=== PATIENT | female | born 1970 | race Caucasian/White ===

== ENCOUNTER → 2016-06-28 | Outpatient (CLI) | payer MEDICAID ==
--- NOTE | ~2016-06-28 | TH ---
Unit #: [id number] #: [id number] Patient: GERARD MEDEIROS [id number] [address] [address] [id number] O MR#: [id number] NAME: GERARD MEDEIROS. : 1970 SEX: F STUDY DATE/TIME: UNIT: [facility] ROOM: STUDY DESCRIPTION: Nuclear Study Attending Physician: Patrick Pierre M.D. Referring Physician: Patrick Pierre M.D. Primary Care Physician: Patrick Pierre M.D. CARDIOLOGY REPORT EXAM Exercise Cardiolite Stress Test - Nuclear Portion PROCEDURE Using technetium 99m labeled Cardiolite, rest and stress SPECT images were obtained. Multiple SPECT images were obtained in various views including horizontal and vertical long axis and short axis views of the left ventricle. Images were obtained by gated SPECT method. The patient was administered 1.71 mCi of Cardiolite at rest. The patient was administered 32.0 mCi of Cardiolite at peak exercise. Total exercise time is 10 minutes. On the stress images, there is normal perfusion noted. The rest images show normal perfusion. Comparing rest and stress images, there is no stress-induced ischemia noted. The left ventricular ejection fraction is calculated to be 61%. There is no focal wall motion abnormality seen. CONCLUSION 1. No stress-induced ischemia noted. 2. The left ventricular ejection fraction is calculated to be 61%. 3. There is no focal wall motion abnormalities seen. 4. Normal exercise Cardiolite stress test. Dictated by... Christophe Marsh TD: 06/29/2016 07:13 JOB #: [id number] Unit #: [id number] #: [id number] Patient: GERARD MEDEIROS CARDIOLOGY REPORT Page 1 of 1 X Keyona Chaudhari MD <ELECTRONICALLY SIGNED> 10/01/16 1429 CARDIOLOGY REPORT
--- NOTE | ~2016-06-28 | ST ---
Unit #: [id number] #: [id number] Patient: GERARD MEDEIROS [id number] [address] [address] [id number] O MR#: [id number] NAME: GERARD MEDEIROS. : 1970 SEX: F STUDY DATE/TIME: 06/28/2016 UNIT: [facility] ROOM: STUDY DESCRIPTION: Exercise stress test Attending Physician: Patrick Pierre M.D. Referring Physician: Patrick Pierre M.D. Primary Care Physician: Patrick Pierre M.D. CARDIOLOGY REPORT PROCEDURE PERFORMED EKG portion of exercise Cardiolite stress test. REASON FOR EXAM History of palpitations and chest pain. DISCUSSION Baseline EKG reveals sinus rhythm with a ventricular rate of 72 beats per minute, nonspecific ST-T wave changes noted in the lateral leads. The patient exercised on the treadmill according to the Kushal protocol for 10 minutes and 2 seconds achieving a workload of 11.8 METS. The maximal heart rate was 160 beats per minute, which represents 91% of the maximal age-predicted heart rate. Maximal blood pressure was 138/79 mmHg. There were no complaints of chest pain. There were no sustained arrhythmias noted. There were some flattening of the T waves but no acute findings. The test was stopped due to protocol completion. IMPRESSION 1. Negative EKG portion of exercise Cardiolite stress test. 2. There were no complaints of chest pain. 3. There were no sustained arrhythmias noted. 4. There was some flattening of the T waves but no acute findings. 5. Please correlate with Cardiolite images. Dictated by... Carol Mohan APRN for Christophe Marsh/anne marie TD: 06/29/2016 15:29 JOB #: [id number] Unit #: [id number] #: [id number] Patient: GERARD MEDEIROS CARDIOLOGY REPORT Page 1 of 1 X CARDIOLOGY REPORT
== END | disposition home or self-care (01) ==
LOC: CNUC 07:02
DX: R07.9 Chest pain, unspecified (principal); R00.2 Palpitations
CPT/HCPCS: 78452; 93017; A9500